=== PATIENT | female | born 1960 | race Caucasian/White ===

== ENCOUNTER → 2024-01-12 10:39 | Outpatient (REF) | payer BC, SELFPAY | LOC: HWWDC 10:39 | PROVIDERS: ATTENDING PHYSICIAN Family Medicine | DX: Z12.31 Encounter for screening mammogram for malignant neoplasm of breast (principal) | CPT/HCPCS: 77063; 77067 ==

== ENCOUNTER → 2024-02-14 09:04 | Outpatient (REF) | payer BC, SELFPAY | LOC: HWRAD 09:04 | PROVIDERS: ATTENDING PHYSICIAN Internal Medicine Rheumatology; FAMILY PHYSICIAN Family Medicine | DX: M06.00 Rheumatoid arthritis without rheumatoid factor, unspecified site (principal); M25.512 Pain in left shoulder; M25.541 Pain in joints of right hand; M25.552 Pain in left hip; M25.559 Pain in unspecified hip | CPT/HCPCS: 73030; 73130; 73523 ==

== ENCOUNTER → 2025-01-29 11:39 | Outpatient (REF) | payer BC, SELFPAY | LOC: HWWDC 11:39 | PROVIDERS: ATTENDING PHYSICIAN Obstetrics & Gynecology Gynecology; FAMILY PHYSICIAN Family Medicine | DX: Z12.31 Encounter for screening mammogram for malignant neoplasm of breast (principal) | CPT/HCPCS: 77063; 77067 ==